=== PATIENT | male | born 1970 | race Caucasian/White ===

== ENCOUNTER 2018-01-28 00:31 | Emergency (ER) | payer SELFPAY ==
[~2018-01-28] VITALS: Ht 167.6 cm; Wt 130.2 kg
[2018-01-28 01:33] LABS: HEMATOCRIT 43.4 % (38.0-50.0); HEMOGLOBIN 15.6 G/DL (12.5-16.6); MCH 32.9 PG (29.0-34.0); MCHC 35.9 G/DL (30.0-36.0); MCV 91.6 FL (86-99); PLATELET COUNT 272 K/uL (156-360); RBC DIS.WIDTH-CV 12.3 % (11.8-14.6); RBC DIS.WIDTH-SD 41.2 % (39-53); RED BLOOD COUNT 4.74 M/uL (4.00-5.50); WHITE BLOOD COUNT 13.9 K/uL (4.1-10.2)
[2018-01-28 01:41] LABS: CHLORIDE 105 mEq/L (99-109); POTASSIUM 3.4 mEq/L (3.7-5.4); SODIUM 140 mEq/L (136-147)
[2018-01-28 01:43] LABS: GLUCOSE 110 mg/dL (70-99)
[2018-01-28 01:47] LABS: CREATININE 0.9 mg/dL (0.6-1.3); GFR ESTIMATE (CALCULATED) > 59 mL/min/ (58.99-99999)
[2018-01-28 01:48] LABS: UREA NITROGEN (BUN) 13 mg/dL (9-23)
[2018-01-28 02:41] VITALS: BP 162/99
== END 2018-01-28 02:42 | disposition home or self-care (01) ==
LOC: EME 00:31
PROVIDERS: Physician Assistant
PROC: 0W3Q7ZZ Control Bleeding in Respiratory Tract, Via Natural or Artificial Opening (ICD-10-PCS; principal; 2018-01-28)
DX: R04.0 Epistaxis (principal); I10 Essential (primary) hypertension
CPT/HCPCS: 80048; 85027; 99281; 99285